=== PATIENT | female | born 1955 | race Caucasian/White ===

== ENCOUNTER 2017-02-27 16:48 | Emergency (ER) | payer OTHER ==
[2014-08-04 11:07] VITALS: BP 172/72
[~2017-02-27] VITALS: Ht 167.6 cm; Wt 77.6 kg
--- NOTE | 2017-02-27 17:31 | PHYS DOC ---
Past History Past Medical History: No Pertinent History Past Surgical History: No Surgical History Alcohol Use: None Drug Use: None Adult General Chief Complaint Chief Complaint: SHOULDER INJURY HPI HPI Patient is a 61-year-old female ambulatory into the ED complaining of right shoulder injury which occurred when she was bucked off of her horse about an hour ago. She denies head injury, denies any other injury or pain. She doesn't really know how she landed, but she knows that there is a smudge of dirt on the lateral aspect of her right shoulder on her sweater. She is able to move her right shoulder except for not able to fully overhead extend it and not able to extend her arm forward. She states she had a right clavicle injury decades ago and has a "lump" secondary to that. Review of Systems Review of Systems Constitutional: Denies fever or chills [] Eyes: Denies change in visual acuity, redness, or eye pain [] HENT: Denies nasal congestion or sore throat [] Respiratory: Denies cough or shortness of breath [] Cardiovascular: Denies chest pain GI: Denies abdominal pain, nausea, vomiting, bloody stools or diarrhea [] : Denies dysuria or hematuria [] Musculoskeletal: As in history of present illness Integument: Denies rash or skin lesions [] Neurologic: Denies head injury Allergies Allergies Allergies Coded Allergies Type Severity Reaction Last Updated Verified No Known Drug Allergies 08/04/14 No Physical Exam Physical Exam Constitutional: Well developed, well nourished, no acute distress, non-toxic appearance. Alert, mentating normally, ambulatory. HENT: Normocephalic, atraumatic, bilateral external ears normal, nose normal. [ ] Eyes: conjunctiva normal, no discharge. [] Neck: Normal range of motion, no stridor. [] Skin: Warm, dry, no erythema, no rash. [] Back: No tenderness, no CVA tenderness. [] Extremities: Right shoulder has an old deformity over the distal clavicle. Clavicle, AC nontender. Shoulder joint anterior and posterior nontender. Tenderness over the lateral aspect over the deltoid. No swelling or deformity. The patient is able to AB duct the shoulder to 90 but not able to fully overhead extend. Elbow, forearm, wrist and hand are normal. Neurologic: Alert and oriented X 3, normal motor function, normal sensory function, no focal deficits noted. [] EKG EKG [] Radiology/Procedures Radiology/Procedures Three-view x-ray of the right shoulder read by me. No acute bony injury. There is an old distal clavicle deformity. No acute fracture or dislocation. [] Course & Med Decision Making Course & Med Decision Making Pertinent Labs and Imaging studies reviewed. (See chart for details) 3 views of the right shoulder demonstrate no bony abnormality. Discussed with the patient ice, ibuprofen. If not better in 3-5 days follow-up for recheck of rotator cuff function. [] Dragon Disclaimer Dragon Disclaimer This chart was dictated in whole or in part using Voice Recognition software in a busy, high-work load, and often noisy Emergency Department environment. It may contain unintended and wholly unrecognized errors or omissions. Departure Departure: Impression: Primary Impression: Contusion of right deltoid region Disposition: 01 HOME, SELF-CARE Condition: STABLE Referrals: AILYN JOHNS (PCP) Patient Instructions: Rotator Cuff Injury Additional Instructions: You may have only bruised your deltoid, or you may have an injury to the ligaments of the rotator cuff. If your shoulder is not back to normal in 3-5 days, recheck with your doctor. You do not want to let a rotator cuff injury wait for more than a week or 2, because retraction of the ligaments and scarring can start happening and make fixing it harder as time goes on. Ice 15 minutes out of every 1-2 hours. Ibuprofen 400 mg every 6-8 hours as needed for pain JEFFERSON FORBES MD Feb 27, 2017 17:31
--- NOTE | 2017-02-28 08:46 | RAD ---
Three-view study of the right shoulder History: Bucked off horse today. Right shoulder pain. Findings: No acute fracture or dislocation or osteolytic process is seen. Old healed lateral right clavicular fracture is seen. No AC joint separation is seen. There is mild degenerative joint space narrowing and spurring of the glenohumeral joint. Small subchondral radiolucency of the mid aspect of the glenoid fossa is seen which may represent a degenerative cyst. If an occult fracture or bone contusion or rotator cuff pathology is suspected clinically, then an MRI study of the right shoulder may be helpful for further evaluation if clinically needed. IMPRESSION: No acute fracture
== END 2017-02-27 18:20 | disposition home or self-care (01) ==
LOC: ER 16:48
DX: S40.011A Contusion of right shoulder, initial encounter (principal); V80.010A Animal-rider injured by fall from or being thrown from horse in noncollision accident, initial encounter; Y93.89 Activity, other specified; Y99.8 Other external cause status; Y92.89 Other specified places as the place of occurrence of the external cause
CPT/HCPCS: 73030; 99284

== ENCOUNTER → 2021-10-01 | Outpatient (CLI) | payer MEDICARE, OTHER ==
[2014-08-04 11:07] VITALS: BP 172/72
--- NOTE | 2021-10-01 12:34 | RAD ---
INDICATION: Screening for osteopenia/osteoporosis. Postmenopausal evaluation COMPARISON: None. TECHNIQUE: Bone densitometry was performed through the lumbar spine and proximal femur. IMPRESSION: Lumbar Spine: BMD: 1.18 T-Score: 0 Range: Normal Proximal Femur: BMD: 0.82 T-Score: -1.1 Range: Osteopenic World Health Organization Criteria for Bone Density: T-Score: > -1.0: Normal Range < -1.0 to -2.5: Osteopenic Range < -2.5: Osteoporotic Range Electronically signed by: Baron Morris MD (10/01/2021 12:31 PM) [id number]
--- NOTE | 2021-10-02 16:34 | RAD ---
Bilateral digital screening 2-D and 3-D (tomosynthesis) mammogram: Reason for examination: Routine screening. Comparison is made to previous mammogram dated 02/01/2019. Bilateral mammograms in CC and oblique projections were obtained with 2-D imaging and 3-D tomosynthes is imaging and reviewed on the workstation. Interpretation was made with the benefit of CAD. Findings: Breast density: Category C. The breasts are heterogeneously dense, which may obscure small masses. There are no suspicious masses, malignant appearing calcifications or architectural distortion. Impression: No evidence of malignancy. ASSESSMENT: BI-RADS 1. Recommendations: Routine screening mammograms. This patient's information has been entered into a reminder system for the patient to be notified wit h the results of her examination and a target date for the next mammogram. Your patient's mammogram demonstrates that she has dense breast tissue (breast density category C or D), which could hide abnormalities, and if she has other risk factors for breast cancer that have bee n identified, she might benefit from supplemental screening tests that may be suggested by you as her ordering physician. Dense breast tissue, in and of itself, is a relatively common condition. Therefo re, this information is not provided to cause undue concern, but rather to raise your awareness and t o promote discussion with your patient regarding the presence of other risk factors, in addition to d ense breast tissue. Electronically signed by: Jenna Rodriguez MD (10/02/2021 4:31 PM) [id number]
== END ==
LOC: MAMMO 10:54
PROVIDERS: ATTEND Nurse Practitioner Family
DX: Z12.31 Encounter for screening mammogram for malignant neoplasm of breast (principal); M85.88 Other specified disorders of bone density and structure, other site; Z78.0 Asymptomatic menopausal state
CPT/HCPCS: 77063; 77067; 77080

== ENCOUNTER → 2022-03-24 | Outpatient (CLI) | payer MEDICARE, OTHER ==
[2014-08-04 11:07] VITALS: BP 172/72
[~2022-03-24] MED LIST: IOHEXOL 350 MG/ML 100 ML VIAL. IV ONE
--- NOTE | 2022-03-24 14:03 | RAD ---
Study: CT ANGIOGRAM CHEST WITH CONTRAST History: Bicuspid aortic valve Comparison: None Technique: Helical CT of the chest performed after the administration of 75 mL intravenous contrast intravenous contrast and timed for angiographic evaluation of the pulmonary arteries per PE protocol. Coronal and sagittal 3D MIP reformations were obtained. One or more of the following individualized dose reduction techniques were utilized for this examinat ion: 1. Automated exposure control 2. Adjustment of the mA and/or kV according to patient size 3. Use of iterative reconstruction technique. Findings: Pulmonary Arteries: Contrast bolus is adequate to evaluate the pulmonary arteries. There is no acute pulmonary embolism. Heart/Systemic Vasculature: The heart is normal in size. There is no pericardial effusion. The ascend ing thoracic aorta is enlarged measuring 4.8 cm in diameter at the level the main pulmonary artery. N o aortic dissection. Minimal calcified aortic atherosclerosis. The aortic valve has a bicuspid appear ance. There are aortic valve calcifications. Mediastinum: No lymphadenopathy. Moderate hiatal hernia. Lungs: The lungs are clear. No pleural effusion or pneumothorax. Neck/Axilla/Body Wall: Thyroid gland is unremarkable. There is no axillary lymphadenopathy. Upper Abdomen: Scattered colonic diverticula. The upper abdomen is otherwise unremarkable. Bones: There is an old inferior endplate compression fracture of L1 with 30 percent height loss anter iorly and minimal retropulsion of posterior inferior cortex without significant canal narrowing. IMPRESSION: 1. Ascending thoracic aortic aneurysm measuring 4.8 cm. Recommend cardiology consultation. 2. Suspect bicuspid aortic valve with calcifications. 3. No acute pulmonary embolism. 4. Moderate hiatal hernia. Electronically signed by: Paris Correa MD (03/24/2022 2:00 PM) [facility]
--- NOTE | 2022-03-24 17:52 | CARD ---
MR#: [id number] Date of Study: 03/24/2022 Ordering Physician: SAIMA WOLFE, Referring Physician: SAIMA WOLFE, Tech: Obi Arreguin [facility] APPROVED REPORT EXAM: Two-dimensional and M-mode echocardiogram with Doppler and color Doppler. Other Information Quality : AverageHR: 57bpm Rhythm : NSR INDICATION Aortic Valve Disease Bicuspid aortic valve. 2D DIMENSIONS Left Atrium(2D)4.1 (1.6-4.0cm)IVSd1.2 (0.7-1.1cm) Aortic Root(2D)3.7 (2.0-3.7cm)LVDd5.2 (3.9-5.9cm) LVOT Diameter1.9 (1.8-2.4cm)PWd1.2 (0.7-1.1cm) LA Vlklcw67 (18-58mL)LVDs2.7 (2.5-4.0cm) FS (%) 47.2 %SV100.5 ml Aortic Valve AoV Peak Jose Ramon.264.6cm/sAoV VTI65.3cm AO Peak GR.28.0mmHgLVOT Peak Jose Ramon.98.0cm/s LVOT VTI 25.25cmAO Mean GR.17mmHg [place] (VMAX)1.35zk9KSZ (VTI)1.07cm2 AI P 1/2 Oltk605lr Mitral Valve MV E Urxbuxkg668.2cm/sMV DECEL NSQO327yj MV A Uzdtgajn21.9cm/sE/A Ratio1.2 Pulmonary Valve PV Peak Ftdpksgw419.2cm/sPV Peak Grad.4mmHg Tricuspid Valve TR P. Lijxfbxb606jy/sTR Peak Gr.27mmHg Pulmonary Vein S1 Kveknbyp85.2cm/sD2 Nmkvyfxm23.4cm/s LEFT VENTRICLE The left ventricle is normal size. There is mild concentric left ventricular hypertrophy. The left ve ntricular systolic function is normal. LV ejection fraction of 55 to 60%. There is normal LV segment al wall motion. Transmitral Doppler flow pattern is Grade II-pseudonormal filling dynamics. Tissue Do ppler imaging reveals abnormal left ventricular diastolic dysfunction. No left ventricle thrombus not ed on this study. There is no ventricular septal defect visualized. There is no left ventricular aneu rysm. There is no mass noted in the left ventricle. RIGHT VENTRICLE The right ventricle is normal size. There is normal right ventricular wall thickness. The right ventr icular systolic function is normal. ATRIA The left atrium is mildly dilated. The right atrium size is normal. The interatrial septum is intact with no evidence for an atrial septal defect or patent foramen ovale as noted on 2-D or Doppler imagi ng. AORTIC VALVE The aortic valve is probably bicuspid The aortic valve is mildly to moderately calcified. Doppler and Color Flow revealed trace to mild aortic regurgitation. There is mild valvular aortic stenosis. Calc ulated aortic valve maximum pressure gradient of 28 mmHg and mean pressure gradient of 16 mmHg. There is no aortic valvular vegetation. MITRAL VALVE The mitral valve is thickened but opens well. There is no evidence of mitral valve prolapse. There is no mitral valve stenosis. Doppler and Color-flow revealed trace to mild mitral regurgitation. TRICUSPID VALVE The tricuspid valve is normal in structure and function. Doppler and Color Flow revealed trace to mil d tricuspid regurgitation. The PA pressure was estimated at 32 mmHg. There is no tricuspid valve prol apse or vegetation. There is no tricuspid valve stenosis. PULMONIC VALVE The pulmonary valve is normal in structure and function. Doppler and Color Flow revealed no pulmonic valvular regurgitation. There is no pulmonic valvular stenosis. GREAT VESSELS The aortic root is normal in size. The ascending aorta is mildly to moderately dilated at (4.8cm). Th e pulmonary artery is normal. The IVC is normal in size and collapses >50% with inspiration. PERICARDIAL EFFUSION There is no pleural effusion. There is no evidence of significant pericardial effusion. Critical Notification Critical Value: No <Conclusion> The left ventricle is normal size. The left ventricular systolic function is normal. LV ejection fraction of 55 to 60%. There is mild concentric left ventricular hypertrophy. The aortic valve is probably bicuspid The aortic valve is mildly to moderately calcified. Doppler and Color Flow revealed trace to mild aortic regurgitation. There is mild valvular aortic stenosis. Calculated aortic valve maximum pressure gradient of 28 mmHg and mean pressure gradient of 16 mmHg. Doppler and Color-flow revealed trace to mild mitral regurgitation. Doppler and Color Flow revealed trace to mild tricuspid regurgitation. The PA pressure was estimated at 32 mmHg. The ascending aorta is mildly to moderately dilated at (4.8cm). Signed by : Joseph Smiley MD Electronically Approved : 03/24/2022 17:52:22
== END ==
LOC: CT 10:06
PROVIDERS: ATTEND Internal Medicine Cardiovascular Disease
DX: I08.3 Combined rheumatic disorders of mitral, aortic and tricuspid valves (principal); I71.2 Thoracic aortic aneurysm, without rupture; K44.9 Diaphragmatic hernia without obstruction or gangrene; I70.0 Atherosclerosis of aorta
CPT/HCPCS: 71275; 93306; Q9967